=== PATIENT | female | born 1985 | race Caucasian/White ===

== ENCOUNTER 2016-06-10 01:14 | Emergency (ER) | payer OTHER ==
[~2016-06-10] VITALS: Ht 160 cm; Wt 99.8 kg
[~2016-06-10 01:14] MED LIST: PERCOCET 325 MG1 TA2 PO; VALTREX1 GM PO
--- NOTE | 2016-06-10 01:44 | ED GENERAL ADULT ---
History of Present Illness General Chief Complaint: Dizziness Stated Complaint: DIZZINESS,SLURRED SPEECH,EDEMA IN LOWER EXTREMITIE Source: patient, family, old records Exam Limitations: no limitations Vital Signs & Intake/Output Vital Signs & Intake/Output Vital Signs Date Time Temp Pulse Resp B/P Pulse O2 O2 Flow FiO2 Ox Delivery Rate 06/10 0150 100 Room Air 06/10 0130 99.0 98 18 126/78 95 Room Air Allergies Coded Allergies: NO KNOWN ALLERGIES (NKDA) (06/07/15) Reconcile Medications OXYCODONE HCL/ACETAMINOPHEN (Percocet 5-325 MG Tablet) 325 MG/5 MG TAB 1 TAB PO Q4-6 PRN PRN PAIN VALACYCLOVIR HCL (Valtrex) 1 GM TAB 1 TAB PO TID SHINGLES Triage Note: PT TO ED C/O FEELING UNCOORDINATED FOR 2 DAYS AND ION LOWER EXTREMETY EDEMA "I NOTICED IN THE SHOWER TONIGHT" PT STATES SHE HAD +DIARRHEA FOR 2 WEEKS, "I STARTED GETTING BETTER 2 DAYS AGO" OCCASIONALLY ABUSES XANAX, LAST USED 5-6 DAYS AGO. SO STATES "HER SPEACH GETS SLURRED SOMETINMES SO I DON'T UNDERSTAND HER" PT STATES "I DON'T NOTICE THAT" VOICE HOARSE, HAS BEEN FOR A WEEK. PT C/O FEELING FATIGUED "I SLEEP A LOT" Triage Nurses Notes Reviewed? yes : No Patient currently breastfeeds: No HPI: Patient presents to the emergency room because she has been having increasing fatigue over the past week. Patient states that she feels that she can sleep all day. Patient also states that she occasionally is slurring her words. Tonight she was in the shower and noticed that both of her legs looked a little bit swollen. Patient denies any pain. Patient denies any recent trauma. There are no fevers or chills. There is no weight gain or weight loss. There is no heat or cold intolerance. There is no chest Pain or shortness of breath. There is no nausea or vomiting. Past History Travel History Traveled to [place] past 21 day No Medical History Any Pertinent Medical History? see below for history Neurological: SHINGLES EENT: NONE Cardiovascular: NONE Respiratory: NONE Gastrointestinal: NONE Hepatic: NONE Renal: NONE Musculoskeletal: NONE Psychiatric: NONE Endocrine: hypothyroidism Blood Disorders: NONE Cancer(s): NONE FREE LANCE MODEL/Reproductive: NONE Tetanus Vaccine: 05/08/12 Surgical History Surgical History: non-contributory, N Psychosocial History What is your primary language Dutch Tobacco Use: Current Daily Use Daily Tobacco Use Amount/Type: => 5 Cigarettes daily ETOH Use: denies use Illicit Drug Use: benzodiazepines Family History Hx Contributory? No Review of Systems Review of Systems Constitutional: Reports: see HPI, malaise. EENTM: Reports: no symptoms. Respiratory: Reports: no symptoms. Cardiovascular: Reports: no symptoms. GI: Reports: no symptoms. Genitourinary: Reports: no symptoms. Musculoskeletal: Reports: see HPI. Skin: Reports: no symptoms. Neurological/Psychological: Reports: see HPI. Hematologic/Endocrine: Reports: no symptoms. Immunologic/Allergic: Reports: no symptoms. All Other Systems: Reviewed and Negative Physical Exam Physical Exam General Appearance: well developed/nourished, alert, awake, mild distress Head: atraumatic, normal appearance Eyes: Bilateral: PERRL, EOMI. Ears, Nose, Throat: normal pharynx, normal ENT inspection, hearing grossly normal Neck: normal inspection, supple, full range of motion Respiratory: normal breath sounds, chest non-tender, no respiratory distress, lungs clear Cardiovascular: regular rate/rhythm, normal peripheral pulses Gastrointestinal: normal bowel sounds, soft, non-tender, no organomegaly Back: normal inspection, normal range of motion Extremities: normal inspection, normal capillary refill, normal range of motion, pedal edema Neurologic/Psych: no motor/sensory deficits, awake, alert, oriented x 3, normal gait, normal mood/affect Skin: intact, normal color, warm/dry Lymphatic: no anterior cervical sari Core Measures ACS in differential dx? No CVA/TIA Diagnosis: No Severe Sepsis Present: No Septic Shock Present: No Progress Differential Diagnoses I considered the following diagnoses in my evaluation of the patient: [ Electrolyte abnormality, hypothyroidism, drug intoxication] Plan of Care: Orders Procedure Date/time Status URINE DRUGS OF ABUSE 06/10 142 Complete URINALYSIS 06/10 142 Complete THYROID STIMULATING HORMONE 06/10 142 Complete MAGNESIUM 06/10 142 Complete HUMAN BETA HCG SCREEN 06/10 142 Complete COMPREHENSIVE METABOLIC PANEL 06/10 142 Complete CBC WITHOUT DIFFERENTIAL 06/10 142 Complete Laboratory Tests 06/10/16 0200: Anion Gap 10, Estimated GFR > 60, BUN/Creatinine Ratio 15.7, Glucose 127 H, Calcium 9.1, Magnesium 1.9, Total Bilirubin 0.4, AST 18, ALT 27, Alkaline Phosphatase 70, Total Protein 6.8, Albumin 3.9, Globulin 2.9, Albumin/Globulin Ratio 1.3, TSH 2.020, Total Beta HCG NEGATIVE, CBC w Diff NO MAN DIFF REQ, RBC 4.50, MCV 89.3, MCH 29.9, RDW 14.1, MPV 7.0 L, Gran % 69.6, Lymphocytes % 22.2, Monocytes % 4.1, Eosinophils % 3.8, Basophils % 0.3, Absolute Granulocytes 4.9, Absolute Lymphocytes 1.6, Absolute Monocytes 0.3, Absolute Eosinophils 0.3, Absolute Basophils 0, PUBS MCHC 33.5, Urine Opiates Screen > 4000.00 H, Methadone Screen < 40, Barbiturate Screen 68, Ur Phencyclidine Scrn < 6.00, Amphetamines Screen < 100, U Benzodiazepines Scrn > 800 H, Urine Cocaine Screen > 1000 H, Urine Cannabis Screen < 5.00, Urinalysis LIGHT H, Urine Color YEL, Urine Clarity HAZY H, Urine pH 6.0, Ur Specific [place] >= 1.030, Urine Protein NEG, Urine Ketones NEG, Urine Nitrite NEG, Urine Bilirubin NEG, Urine Urobilinogen 1.0, Ur Leukocyte Esterase NEG, Ur Microscopic SEDIMENT EXAMINED, Urine RBC 1-3, Urine WBC 1-3 H, Ur Epithelial Cells FEW, Urine Mucus FEW, Urine Hemoglobin TRACE-INTACT, Urine Glucose NEG Initial ED EKG: none Departure Departure Disposition: HOME OR SELF CARE Condition: Stable Clinical Impression Primary Impression: Polysubstance abuse Referrals: AFSANEH ANTONIO (PCP/Family) Additional Instructions: PLEASE RETURN IF YOU WOULD LIKE HELP TO STOP USING DRUGS OR FOR ANY CONCERNS Departure Forms: Customer Survey General Discharge Information Critical Care Note Critical Care Note Critical Care Time: non-applicable
[2016-06-10 02:27] LABS: ABSOLUTE BASOPHIL COUNT 0 /CUMM (0.0-0.2); ABSOLUTE EOSINOPHIL COUNT 0.3 /CUMM (0.0-0.7); ABSOLUTE GRANULOCYTE CT 4.9 /CUMM (1.4-6.5); ABSOLUTE LYMPH COUNT 1.6 /CUMM (1.2-3.4); ABSOLUTE MONOCYTE COUNT 0.3 /CUMM (0.10-0.60); BASOPHIL % 0.3 % (0.0-2.0); EOSINOPHIL % 3.8 % (0-5); GRANULOCYTE % 69.6 % (42.2-75.2); HEMATOCRIT 40.2 % (37-47); MEAN CORPUSCULAR HGB 29.9 PG (27.0-31.0); MEAN CORPUSCULAR HGB CONC 33.5 G/DL (33.0-37.0); MEAN CORPUSCULAR VOLUME 89.3 FL (81.0-99.0); PLATELET COUNT 250 /CUMM (130-400); RBC DISTRIBUTION WIDTH 14.1 % (11.5-14.5)
[2016-06-10 03:48] VITALS: BP 130/80
== END 2016-06-10 03:51 ==
LOC: ERH 01:14
PROVIDERS: Emergency Medicine
DX: F13.10 Sedative, hypnotic or anxiolytic abuse, uncomplicated (principal)
CPT/HCPCS: 80307; 81001